=== PATIENT | female | born 1980 | race Caucasian/White ===

== ENCOUNTER 2016-12-23 16:49 | Emergency (ER) | payer BC, MEDICAID ==
[~2016-12-23] VITALS: Ht 177.8 cm; Wt 65.2 kg
[~2016-12-23 16:49] MED LIST: ALPR-475 PO; CYCL5TAB PO; DIAZ5TAB PO; FLUO10CA13 PO; HYDR4TAB16 PO; ONDA4TAB7 PO; OXYC5CAP4 PO
[2016-12-23 17:54] LABS: DAU SCREEN DISCLAIMER
[2016-12-23 18:07] LABS: BLOOD UREA NITROGEN 4 mg/dL (7-18)
[2016-12-23 18:12] LABS: ACETAMINOPHEN < 2 mcg/mL (10-30)
[2016-12-23 21:27] VITALS: BP 119/74
== END 2016-12-23 21:30 | disposition home or self-care (01) ==
LOC: ED 21:24
DX: F10.229 Alcohol dependence with intoxication, unspecified (principal); F32.9 Major depressive disorder, single episode, unspecified; F90.9 Attention-deficit hyperactivity disorder, unspecified type
CPT/HCPCS: 36415; 80048; 80307; 80329; 81001; 82040; 84703; 85025; 87077; 87086; 87186; 99284; G0480

== ENCOUNTER 2017-01-12 08:33 | Emergency (ER) | payer MEDICAID ==
[~2017-01-12] VITALS: Ht 180.3 cm; Wt 65.0 kg
[~2017-01-12 08:33] MED LIST changes: -HYDR4TAB16 PO; +HYDR4TAB48 PO
[2017-01-12] MEDS ORDERED: SODIUM CHLORIDE 0.9% 1,000 ML IV ONE (09:16)
[2017-01-12] MEDS ORDERED: LORazepam 2 MG/ML, 1ML IVPush ONE (09:30)
[2017-01-12] MEDS ORDERED: THIAMINE 100MG TABLET PO ONE (09:30)
[2017-01-12] MEDS ORDERED: ONDANSETRON 2MG/ML, 2ML IVPush ONE (09:30)
[2017-01-12] MEDS ORDERED: SODIUM CHLORIDE 0.9% 1,000ML IVBOLUS ONE (09:30)
[2017-01-12 09:40] LABS: DAU SCREEN DISCLAIMER
[2017-01-12] MEDS ORDERED: ONDANSETRON 2MG/ML, 2ML ONE (09:43)
[2017-01-12] MEDS ORDERED: THIAMINE 100MG TABLET ONE (09:43)
[2017-01-12] MEDS ORDERED: LORazepam 2 MG/ML, 1ML ONE ×3 (09:44→11:28)
[2017-01-12 10:00] LABS: HCG UR OBC PASS
[2017-01-12 10:06] LABS: ASPARTATE AMINO TRANSFERASE 206 U/L (15-37); BLOOD UREA NITROGEN 9 mg/dL (7-18)
[2017-01-12] MEDS: LORazepam 2 MG/ML, 1ML IVPush PRN ×2 (10:45→11:30)
[2017-01-12 12:48] VITALS: BP 124/83
== END 2017-01-12 12:53 | disposition home or self-care (01) ==
LOC: ED 09:20
DX: F10.121 Alcohol abuse with intoxication delirium (principal)
CPT/HCPCS: 36415; 70450; 80053; 80307; 81025; 83690; 85025; 93005; 96361; 96374; 96375; 96376; 99285; J2060; J2405; J7030

== ENCOUNTER 2017-01-16 17:16 | Emergency (ER) | payer MEDICAID ==
[~2017-01-16] VITALS: Ht 177.8 cm; Wt 65.5 kg
[2017-01-16] MEDS ORDERED: SODIUM CHLORIDE FLUSH 10ML SYR IVF ONE (18:30)
[2017-01-16] MEDS ORDERED: THIAMINE 100 MG in SODIUM CHLORIDE 0.9% 50 ML IVPB ONE (18:30)
[2017-01-16] MEDS ORDERED: LORazepam 2 MG/ML, 1ML IVPush ONE (18:30)
[2017-01-16] MEDS ORDERED: ONDANSETRON 2MG/ML, 2ML IVPush ONE (18:30)
[2017-01-16] MEDS ORDERED: HYDR25TA11 PO (19:36)
[2017-01-16] MEDS ORDERED: ONDA4TAB13 SL (19:36)
[2017-01-16] MEDS ORDERED: FLUO40CA2 PO (19:36)
[2017-01-16] MEDS ORDERED: TRAZ100T15 PO (19:36)
[2017-01-16] MEDS ORDERED: CHLO25CA9 PO (19:36)
[2017-01-16] MEDS ORDERED: DIVA-68 PO (19:36)
[2017-01-16] MEDS ORDERED: ONDANSETRON 2MG/ML, 2ML ONE (19:41)
[2017-01-16] MEDS ORDERED: LORazepam 2 MG/ML, 1ML ONE (19:42)
[2017-01-16 19:56] LABS: ASPARTATE AMINO TRANSFERASE 111 U/L (15-37); BLOOD UREA NITROGEN 4 mg/dL (7-18)
[2017-01-16 20:17] LABS: DIFF TOTAL CELLS COUNTED 100 CELL DIFF
[2017-01-16 20:23] LABS: VERIFY COUNTS? YES
[2017-01-16] MEDS ORDERED: POTASSIUM CHLORIDE 20 MEQ TAB.ER.PRT PO ONE (20:30)
[2017-01-16 21:08] VITALS: BP 129/89
== END 2017-01-16 21:22 | disposition home or self-care (01) ==
LOC: ED 21:15
DX: S09.90XA Unspecified injury of head, initial encounter (principal); Z00.01 Encounter for general adult medical examination with abnormal findings; F17.200 Nicotine dependence, unspecified, uncomplicated; F10.20 Alcohol dependence, uncomplicated; F90.9 Attention-deficit hyperactivity disorder, unspecified type; W01.0XXA Fall on same level from slipping, tripping and stumbling without subsequent striking against object, initial encounter; Y93.89 Activity, other specified; Y92.009 Unspecified place in unspecified non-institutional (private) residence as the place of occurrence of the external cause; Y99.8 Other external cause status
CPT/HCPCS: 36415; 70450; 73610; 76830; 80053; 84703; 85025; 96365; 96375; 99285; J2405; J3411

== ENCOUNTER 2017-01-21 23:02 | Observation (INO) | payer MEDICAID ==
[~2017-01-21] VITALS: Ht 177.8 cm; Wt 66.8 kg
[~2017-01-21 23:02] MED LIST changes: +CHLO25CA9 PO; +DIVA-68 PO; +FLUO40CA2 PO; +HYDR25TA11 PO; +ONDA4TAB13 SL; +TRAZ100T15 PO
[2017-01-22] MEDS ORDERED: SODIUM CHLORIDE FLUSH 10ML SYR IVF ONE
[2017-01-22] MEDS ORDERED: SODIUM CHLORIDE 0.9% 1,000ML IVBOLUS ONE
[2017-01-22] MEDS ORDERED: ONDANSETRON 2MG/ML, 2ML IVPush ONE
[2017-01-22 00:07] LABS: ASPARTATE AMINO TRANSFERASE 90 U/L (15-37); BLOOD UREA NITROGEN 5 mg/dL (7-18)
[2017-01-22 00:13] LABS: ACETAMINOPHEN < 2 mcg/mL (10-30)
[2017-01-22] MEDS ORDERED: ONDANSETRON 2MG/ML, 2ML ONE (00:13)
[2017-01-22 00:18] LABS: DIFF TOTAL CELLS COUNTED 100 CELL DIFF
[2017-01-22 00:18] LABS: DAU SCREEN DISCLAIMER
[2017-01-22 00:24] LABS: VERIFY COUNTS? YES
[2017-01-22] MEDS ORDERED: POTASSIUM CHLORIDE 20 MEQ TAB.ER.PRT PO ONE (00:30)
[2017-01-22] MEDS ORDERED: POTASSIUM CHLORIDE 20 MEQ in SODIUM CHLORIDE 0.9% 250 ML IV ONE (02:00)
[2017-01-22] MEDS ORDERED: POTASSIUM CHLORIDE 20 MEQ TAB.ER.PRT ONE (02:50)
[2017-01-22 04:49] VITALS: BP 138/92
[2017-01-22] MEDS ORDERED: DOCUSATE 100 MG CAPSULE PO PRN (05:30)
[2017-01-22] MEDS ORDERED: ONDANSETRON ODT 4 MG PO PRN (05:30)
[2017-01-22 08:36] LABS: BLOOD UREA NITROGEN 5 mg/dL (7-18)
[2017-01-22 09:33] LABS: DIFF TOTAL CELLS COUNTED 100 CELL DIFF
[2017-01-22 09:40] LABS: VERIFY COUNTS? YES
[2017-01-22 09:52] VITALS: BP 111/72
[2017-01-22] MEDS: POTASSIUM CHLORIDE 20 MEQ TAB.ER.PRT PO SCH ×2 (10:40→17:18)
[2017-01-22] MEDS ORDERED: MAGNESIUM SULFATE PMX 2GM/50ML 50 ML IV ONE (12:30)
[2017-01-22 15:11] VITALS: BP 152/88
[2017-01-22] MEDS: ACETAMINOPHEN 325 MG TABLET PO PRN (15:31)
[2017-01-22] MEDS: LORazepam 1MG TABLET PO PRN (17:18)
[2017-01-22 19:19] VITALS: BP 118/75
[2017-01-22] MEDS: NORETHINDRONE HOMEMEDPO SCH (21:24)
[2017-01-23 00:23] VITALS: BP 115/69
[2017-01-23] MEDS: LORazepam 1MG TABLET PO PRN (00:44)
[2017-01-23 05:45] LABS: BLOOD UREA NITROGEN 4 mg/dL (7-18)
[2017-01-23 06:21] LABS: DIFF TOTAL CELLS COUNTED 100 CELL DIFF
[2017-01-23 06:22] LABS: VERIFY COUNTS? YES
[2017-01-23 08:43] VITALS: BP 144/99
[2017-01-23] MEDS: ACETAMINOPHEN 325 MG TABLET PO PRN ×3 (10:11→22:08)
[2017-01-23 14:56] VITALS: BP 122/85
[2017-01-23] MEDS ORDERED: LORazepam 1MG TABLET ONE (17:29)
[2017-01-23] MEDS: LORazepam 0.5MG TABLET PO PRN ×2 (17:35→22:08)
[2017-01-23 19:08] VITALS: BP 120/76
[2017-01-23] MEDS: FLUOXETINE 20 MG CAPSULE PO SCH (20:24)
[2017-01-23] MEDS: NORETHINDRONE HOMEMEDPO SCH (20:25)
[2017-01-23] MEDS: DIVALPROEX 500 MG TABLET.DR PO SCH (20:28)
[2017-01-24 01:42] VITALS: BP 124/78
[2017-01-24] MEDS: LORazepam 0.5MG TABLET PO PRN ×4 (03:48→22:34)
[2017-01-24] MEDS: ACETAMINOPHEN 325 MG TABLET PO PRN ×4 (03:48→22:35)
[2017-01-24 05:44] LABS: ASPARTATE AMINO TRANSFERASE 64 U/L (15-37); BLOOD UREA NITROGEN 6 mg/dL (7-18)
[2017-01-24 06:20] LABS: VERIFY COUNTS? YES
[2017-01-24 06:21] LABS: ANISOCYTOSIS 1+; POLYCHROMASIA 1+
[2017-01-24 06:26] LABS: DIFF TOTAL CELLS COUNTED 100 CELL DIFF
[2017-01-24 08:00] VITALS: BP 120/82
[2017-01-24] MEDS: DIVALPROEX 500 MG TABLET.DR PO SCH ×2 (08:52→20:03)
[2017-01-24 12:35] VITALS: BP 115/74
[2017-01-24] MEDS: NORETHINDRONE HOMEMEDPO SCH (20:00)
[2017-01-24] MEDS: FLUOXETINE 20 MG CAPSULE PO SCH (20:03)
[2017-01-24 20:39] VITALS: BP 121/80
[2017-01-24] MEDS ORDERED: LORazepam 1MG TABLET ONE (22:30)
[2017-01-25 01:24] VITALS: BP 102/65
[2017-01-25] MEDS: ACETAMINOPHEN 325 MG TABLET PO PRN ×3 (04:58→20:33)
[2017-01-25] MEDS: LORazepam 0.5MG TABLET PO PRN ×2 (04:58→10:51)
[2017-01-25 06:00] LABS: DIFF TOTAL CELLS COUNTED 100 CELL DIFF
[2017-01-25 06:04] LABS: ANISOCYTOSIS 1+; POLYCHROMASIA 1+; VERIFY COUNTS? YES
[2017-01-25 06:25] VITALS: BP 113/74
[2017-01-25] MEDS: DIVALPROEX 500 MG TABLET.DR PO SCH ×2 (08:52→20:32)
[2017-01-25 10:06] LABS: HEPATITIS C VIRUS ANTIBODY Nonreactive (Nonreactive)
[2017-01-25 12:47] VITALS: BP 118/77
[2017-01-25] MEDS: THIAMINE 100MG TABLET PO SCH (18:39)
[2017-01-25] MEDS: FOLIC ACID 1 MG TABLET PO SCH (18:39)
[2017-01-25 18:41] VITALS: BP 114/77
[2017-01-25] MEDS: NORETHINDRONE HOMEMEDPO SCH (20:00)
[2017-01-25] MEDS: FLUOXETINE 20 MG CAPSULE PO SCH (20:32)
[2017-01-25] MEDS ORDERED: LORazepam 0.5MG TABLET PO PRN (21:00)
[2017-01-26 02:53] VITALS: BP 102/67
[2017-01-26 06:22] LABS: BLOOD UREA NITROGEN 8 mg/dL (7-18)
[2017-01-26 06:29] LABS: DIFF TOTAL CELLS COUNTED 100 CELL DIFF
[2017-01-26 06:43] LABS: ANISOCYTOSIS 1+; POLYCHROMASIA 1+; VERIFY COUNTS? YES
[2017-01-26 07:28] VITALS: BP 108/68
[2017-01-26] MEDS: THIAMINE 100MG TABLET PO SCH (09:17)
[2017-01-26] MEDS: FOLIC ACID 1 MG TABLET PO SCH (09:17)
[2017-01-26] MEDS: DIVALPROEX 500 MG TABLET.DR PO SCH (09:17)
[2017-01-26 12:49] VITALS: BP 112/76
[2017-01-26 16:38] LABS: HIV 1&2 ANTIBODY SCREEN Nonreactive (Nonreactive); HIV-1 p24 ANTIGEN Nonreactive (Nonreactive)
[2017-01-26 20:09] VITALS: BP 118/78
[2017-01-26] MEDS: FLUOXETINE 20 MG CAPSULE PO SCH (21:01)
[2017-01-26] MEDS: NORETHINDRONE HOMEMEDPO SCH (21:05)
[2017-01-27 02:31] VITALS: BP 119/75
[2017-01-27 06:12] LABS: BLOOD UREA NITROGEN 11 mg/dL (7-18)
[2017-01-27 08:00] VITALS: BP 122/75
[2017-01-27] MEDS ORDERED: HYDR25TA11 PO (08:11)
[2017-01-27] MEDS: THIAMINE 100MG TABLET PO SCH (08:25)
[2017-01-27] MEDS: FOLIC ACID 1 MG TABLET PO SCH (08:25)
== END 2017-01-27 10:58 | disposition home or self-care (01) ==
LOC: ED 23:18 → EDIP 01-22 03:16 → INTOOBSV 01-22 03:16 → 4WST 01-22 04:55
PROVIDERS: ADMIT Internal Medicine; ATTEND Internal Medicine
DX: T43.212A Poisoning by selective serotonin and norepinephrine reuptake inhibitors, intentional self-harm, initial encounter (principal); E87.6 Hypokalemia; D50.0 Iron deficiency anemia secondary to blood loss (chronic); N93.9 Abnormal uterine and vaginal bleeding, unspecified; K70.10 Alcoholic hepatitis without ascites; D72.819 Decreased white blood cell count, unspecified; D75.89 Other specified diseases of blood and blood-forming organs; D70.9 Neutropenia, unspecified; F32.9 Major depressive disorder, single episode, unspecified; F90.9 Attention-deficit hyperactivity disorder, unspecified type; G40.909 Epilepsy, unspecified, not intractable, without status epilepticus; F10.239 Alcohol dependence with withdrawal, unspecified; F10.220 Alcohol dependence with intoxication, uncomplicated
CPT/HCPCS: 36415; 80048; 80053; 80074; 80164; 80307; 80329; 82607; 82746; 84703; 85025; 86703; 87899; 93005; 96361; 96365; 96366; 96367; 96375; 99285; G0378; J2405; J3475; J3480; J7030; J7050; Q0177; G0435; G0480

== ENCOUNTER 2017-02-28 10:51 | Emergency (ER) | payer MEDICAID ==
[~2017-02-28] VITALS: Ht 177.8 cm; Wt 67.0 kg
[2017-02-28 10:54] VITALS: BP 108/65
[2017-02-28] MEDS ORDERED: KETOROLAC 30 MG/1 ML ONE (11:55)
[2017-02-28] MEDS ORDERED: KETOROLAC 30 MG/1 ML IM ONE (12:00)
== END 2017-02-28 12:27 | disposition home or self-care (01) ==
LOC: ED 12:10
DX: M75.32 Calcific tendinitis of left shoulder (principal); Z91.018 Allergy to other foods; Z88.2 Allergy status to sulfonamides
CPT/HCPCS: 73030; 96372; 99284; J1885

== ENCOUNTER 2017-07-15 04:57 | Emergency (ER) | payer MEDICAID ==
[~2017-07-15 04:57] MED LIST changes: +OXYC5CAP2 PO; -OXYC5CAP4 PO
== END 2017-07-15 05:09 ==
LOC: ED 05:02
DX: Z53.21 Procedure and treatment not carried out due to patient leaving prior to being seen by health care provider (principal)

== ENCOUNTER 2017-07-19 03:55 | Emergency (ER) | payer MEDICAID ==
[~2017-07-19] VITALS: Ht 177.8 cm; Wt 77.1 kg
[2017-07-19 03:57] VITALS: BP 152/105
[2017-07-19] MEDS ORDERED: ACETAMINOPHEN 325 MG TABLET PO ONE (05:30)
[2017-07-19] MEDS ORDERED: ACETAMINOPHEN 325 MG TABLET ONE (05:33)
== END 2017-07-19 06:37 | disposition home or self-care (01) ==
LOC: ED 06:35
DX: S06.0X1A Concussion with loss of consciousness of 30 minutes or less, initial encounter (principal); S16.1XXA Strain of muscle, fascia and tendon at neck level, initial encounter; F10.120 Alcohol abuse with intoxication, uncomplicated; W01.0XXA Fall on same level from slipping, tripping and stumbling without subsequent striking against object, initial encounter; Y93.89 Activity, other specified; Y99.8 Other external cause status; Y92.89 Other specified places as the place of occurrence of the external cause; F90.9 Attention-deficit hyperactivity disorder, unspecified type
CPT/HCPCS: 70450; 72125; 99284

== ENCOUNTER 2018-02-01 17:34 | Emergency (ER) | payer MEDICAID ==
[~2018-02-01] VITALS: Ht 177.8 cm; Wt 68.2 kg
[2018-02-01] MEDS ORDERED: PROP10TA PO (17:53)
[2018-02-01] MEDS ORDERED: BUPR-173 PO (17:53)
[2018-02-01] MEDS ORDERED: FLUOXETINE 10 MG CAP PO ONE (18:30)
[2018-02-01] MEDS ORDERED: SODIUM CHLORIDE 0.9% 1,000ML IVBOLUS ONE (18:30)
[2018-02-01] MEDS ORDERED: ONDANSETRON 2MG/ML, 2ML IVPush ONE (18:30)
[2018-02-01] MEDS ORDERED: FLUOXETINE HCL 20 MG CAPSULE ONE (18:31)
[2018-02-01] MEDS ORDERED: ONDANSETRON 2MG/ML, 2ML ONE (18:31)
[2018-02-01] MEDS ORDERED: FLUOXETINE 10 MG CAP ONE (18:31)
[2018-02-01 18:58] LABS: BASOPHILS # (AUTO) 0.01 x10^3/uL (0-0.1); BASOPHILS % (AUTO) 0 % (0-1); EOSINOPHILS # (AUTO) 0.01 x10^3/uL (0-0.4); EOSINOPHILS % (AUTO) 0 % (1-7); LYMPHOCYTES # (AUTO) 0.77 x10^3/uL (1-3.4); LYMPHOCYTES % (AUTO) 16 % (22-44); MD NO; MEAN CORPUSCULAR HEMOGLOBIN 31.1 pg (27.0-34.8); MEAN CORPUSCULAR HGB CONC 33.4 g/dL (32.4-35.8); MEAN CORPUSCULAR VOLUME 93.1 fL (80-100); MEAN PLATELET VOLUME 6.3 fL (7.4-10.4); MONOCYTES # (AUTO) 0.31 x10^3/uL (0.2-0.8); MONOCYTES % (AUTO) 7 % (2-9); NEUTROPHILS # (AUTO) 3.69 x10^3/uL (1.8-6.8); NEUTROPHILS % (AUTO) 77 % (42-75); PLATELET COUNT 174 x10^3/uL (130-400); RED BLOOD COUNT 4.23 x10^6/uL (3.82-5.3); RED CELL DISTRIBUTION WIDTH 16.5 % (9.6-15.2)
[2018-02-01 19:08] LABS: ALBUMIN 4.3 g/dL (3.4-5.0); ANION GAP 8 mmol/L (5-15); CALCIUM 9.5 mg/dL (8.5-10.1); CHLORIDE 107 mmol/L (98-107); CREATININE 0.63 mg/dL (0.55-1.02)
[2018-02-01 19:12] LABS: TROPONIN I < 0.015 ng/mL (0.000-0.045)
[2018-02-01] MEDS ORDERED: LORazepam 1MG TABLET ONE (19:49)
[2018-02-01] MEDS ORDERED: LORazepam 1MG TABLET PO ONE (20:00)
[2018-02-01 20:14] VITALS: BP 166/92
== END 2018-02-01 20:17 | disposition home or self-care (01) ==
LOC: ED 20:14
DX: R55 Syncope and collapse (principal); R42 Dizziness and giddiness; R11.2 Nausea with vomiting, unspecified; E86.0 Dehydration
CPT/HCPCS: 36415; 71045; 80048; 82040; 84484; 84703; 85025; 93005; 96361; 96374; 99285; J2405; J7030